=== PATIENT | male | born 1965 | race Caucasian/White ===

== ENCOUNTER 2019-06-05 08:58 | Observation (INO) ==
--- NOTE | 2019-05-23 10:29 | Anesthesiology Consultation ---
Date of Service May 23, 2019 Assessment & Plan (1) Encounter for pre-operative examination: Chart Review Chart Review: Acceptable Risk for Surgery and Patient NOT seen in Pre Admission Testing History Surgery Operation Date: 06/05/19 07:30 Proposed Procedures p L4-L5 Laminectomy - Arpit Erickson DO Height/Weight Height: 5 ft 8 in Weight: 97.069 kg Allergies Allergy/AdvReac Type Severity Reaction Status Date / Time Penicillins Allergy Mild as child Verified 04/30/19 13:08 Medications Home Medications Medication Instructions Recorded Confirmed Last Taken Juice Plus 4 tab PO QAM 11/21/18 04/30/19 11/21/18 acetaminophen [Tylenol Extra 1,000 mg PO HS 11/21/18 04/30/19 11/20/18 Strength] alprazolam 1 mg PO HS 11/21/18 04/30/19 11/20/18 calcium carbonate [Oyster Shell 1,000 mg PO QAM 11/21/18 04/30/19 11/21/18 Calcium] cetirizine 10 mg PO QAM 11/21/18 04/30/19 11/21/18 cholecalciferol (vitamin D3) 5,000 unit PO QAM 11/21/18 04/30/19 11/21/18 [Vitamin D3] omeprazole 20 mg PO QAM 11/21/18 04/30/19 11/21/18 Past Medical History Medical History (Updated 05/23/19 @ 10:28 by Sabine Lanier) GERD (gastroesophageal reflux disease) Obesity Osteoarthritis Past Family History Family History Mother Stroke Ovarian cancer Father Heart disease Past Surgical History Surgical History Hx laparoscopic cholecystectomy Hx of colonoscopy Hx of umbilical hernia repair Hx of wisdom tooth extraction PONV (postoperative nausea and vomiting) "does well with scopolamine patch" per RN phone interview Social History Smoking Status: Never smoker Do You Dip or Chew Tobacco: No Hx Alcohol Use: Yes Alcohol type: beer alcohol intake frequency: a few times a month Hx Substance Use: No substance use type: does not use Testing Laboratory Results 05/20/19 WBC 6.80 H/H 15.9/44.5 PLATELETS 249 SODIUM 136 POTASSIUM 4.1 CHLORIDE 105 CO2 26 BUN 21 CREATININE 0.86 GLUCOSE 133 PT 10.5 PTT 25.1 INR 1.0 Electrocardiogram Date: 05/20/19 NSR at 71bpm. iRBBB. Chest X-Ray Date: 05/20/19 The cardiac silhouette is mildly enlarged. This remains unchanged. The lungs are clear. No pleural effusions. No pneumothorax. IMPRESSION: Stable mild cardiomegaly. No acute process. Echocardiogram Date: 08/25/14 EF 60%. No RWMA. Mild LVH. Mild MR. Mild biatrial enlargement.
--- NOTE | 2019-06-04 09:07 | History and Physical Report ---
DATE OF ADMISSION: 06/05/2019 CHIEF COMPLAINT: Back pain, lower extremity difficulty, paresthesias and weakness. HISTORY OF PRESENT ILLNESS: Chepe is a pleasant, ongoing weakness to his lower extremities. 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 PAST MEDICAL HISTORY: Positive for GERD. FAMILY HISTORY: Stroke, heart disease. SOCIAL HISTORY: Nonsmoker, non-ETOH user. REVIEW OF SYSTEMS: Denies any fevers, sweats, chills. Denies any HEENT complaints. No chest pain, palpitations. No shortness of breath. He does have some bowel and bladder issues, possibly related to the spine. OBJECTIVE: GENERAL: He is alert, oriented, pleasant. VITAL SIGNS: Blood pressure 130/80, pulse 80, respirations 16. HEENT: Pupils react to light and accommodation. Ear, nose and throat clear. ABDOMEN: Soft, nontender, no referred pain. He has some weakness of dorsiflexion, plantarflexion, weakness with percussion as well. IMPRESSION: Severe spinal stenosis. PLAN: Includes a laminectomy L4-L5 lumbar spine.
[~2019-06-05 08:58] MED LIST: CLINDAMYCIN 600 MG/54 ML BAG IV SCH; LR 15ML/HR IV SCH; SODIUM CHLORIDE 0.9% 1,000 ML IV SCH
[2019-06-05] MEDS ORDERED: PROPOFOL IV EMULSION 10 MG/ML 20 ML VIAL IV ONE (09:34)
[2019-06-05] MEDS ORDERED: ONDANSETRON INJ 2 MG/ML 2 ML VIAL ONE (09:34)
[2019-06-05] MEDS ORDERED: HYDROmorphone INJ 2 MG/ML SYR/VIAL ONE (09:34)
[2019-06-05] MEDS ORDERED: ROCURONIUM BROMIDE 10 MG/ML 5 ML VIAL ONE (09:34)
[2019-06-05] MEDS ORDERED: MIDAZOLAM HCL 1 MG/ML 2ML VIAL ONE (09:34)
[2019-06-05] MEDS ORDERED: fentaNYL citrate 100 MCG/2 ML VIAL ONE (09:34)
[2019-06-05] MEDS ORDERED: LIDOCAINE HCL 2% 2 ML VIAL/AMP(20MG/ML) INFIL ONE (09:34)
[2019-06-05] MEDS ORDERED: DEXAMETHASONE SOD INJ 4 MG/ML VIAL ONE (09:34)
[2019-06-05] MEDS ORDERED: SCOPOLAMINE 1.5 MG TDSY ONE (10:28)
[2019-06-05] MEDS ORDERED: GELATIN SPONGE SZ 100 ONE (10:29)
[2019-06-05] MEDS ORDERED: EPINEPHrine INJ 1 MG/ML AMP ONE (10:30)
[2019-06-05] MEDS ORDERED: BUPIVACAINE 0.5 % 5 MG/1 ML MPF 30ML VIAL ONE (10:30)
[2019-06-05] MEDS ORDERED: THROMBIN FOR SOLN 20000 UNIT KIT ONE (10:30)
[2019-06-05] MEDS ORDERED: BACITRACIN INJ 50,000 UNIT VIAL ONE (10:30)
[2019-06-05] MEDS ORDERED: VANCOMYCIN HCL 1000MG/20ML VIAL ONE (10:31)
[2019-06-05] MEDS ORDERED: ePHEDrine sulfate 50 MG/ML AMP IV PRN (10:37)
[2019-06-05] MEDS ORDERED: ONDANSETRON INJ 2 MG/ML 2 ML VIAL IV PRN (10:37)
[2019-06-05] MEDS ORDERED: PROMETHAZINE HCL 12.5 MG in SODIUM CHLORIDE 0.9% 50 ML IV PRN (10:37)
[2019-06-05] MEDS ORDERED: ATROPINE SULFATE 0.1 MG/ML 10ML SYR IV PRN (10:37)
[2019-06-05] MEDS ORDERED: fentaNYL citrate 100 MCG/2 ML VIAL IV PRN (10:37)
[2019-06-05] MEDS ORDERED: METOCLOPRAMIDE HCL INJ 5 MG/ML 2 ML VIAL IV PRN (10:37)
[2019-06-05] MEDS ORDERED: HYDROmorphone INJ 2 MG/ML SYR/VIAL IV PRN (10:37)
--- NOTE | 2019-06-05 10:49 | History & Physical Bridge Note ---
Date of Service June 05, 2019 History & Physical Bridge Note I have examined the patient, reviewed the History & Physical and in the interval since the performance of the History & Physical I have noted the following changes of clinical significance: no changes noted
--- NOTE | 2019-06-05 12:40 | Post Operative Brief Note ---
PG Immediate Post Op with CF Date of Surgery June 05, 2019 Pre & Post Diagnosis Operation Date: 06/05/19 11:05 Pre-Op Diagnosis: Disc Herniation, Spinal Stenosis Post-Op Diagnosis: Disc Herniation, Spinal Stenosis I identified the patient and participated in the time-out.: Yes Procedure Operation Date: 06/05/19 11:05 Actual Procedures p L3-L5 Decompression and Laminectomy(Not Applicable) - Arpit Erickson DO Surgeon Arpit Erickson DO Coroner Transport Technician Brian minor Estimated Blood Loss 150 Findings Consistent with Post-Op Diagnosis Specimens Specimen Description: none per surgeon Drains Hemovac Drain Disposition Accompanied Patient To Recovery: Yes Overlapping Procedure I was immediately available: during the entire case.
--- NOTE | 2019-06-05 12:43 | Operative Report ---
PG Post Operative Report Pre & Post Diagnosis Operation Date: 06/05/19 11:05 Pre-Op Diagnosis: Disc Herniation, Spinal Stenosis Post-Op Diagnosis: Disc Herniation, Spinal Stenosis I identified the patient and participated in the time-out.: Yes Procedure Operation Date: 06/05/19 11:05 Actual Procedures p L3-L5 Decompression and Laminectomy(Not Applicable) - Arpit Erickson DO Surgeon Arpit Erickson DO Bread Molder Brian minor Estimated Blood Loss 150 Findings Consistent with Post-Op Diagnosis Specimens No specimens Drains Hemovac Anesthesia Type General Disposition Accompanied Patient To Recovery: Yes Description of Procedure Patient was brought to the operating room. A general intubated anesthetic provided to the patient. Images were studied thoroughly prior to his start of the procedure' He was placed prone on the Teofilo table for scrub then prepped draped sterile. Formal timeout taken We made a skin incision in fashion incision dissecting down. We used C-arm guidance to verify positioning. We were done on the facet joints and lamina and did a complete laminectomy at the 4 5 and 3 4 areas of the lumbar spine is a multitude of techniques. Including a bur rongeurs Kerrisons and [place]ell rongeurs as the bone was quite rigorous and dense. Following each and every nerve root decompressed from L3 down to L5. I probed the nerve roots I could visualize the nerve roots I they were free of obstruction at the conclusion We then began our closure we first irrigated thoroughly closed over Hemovac drain and over vancomycin powder 1 Vicryl suture 2-0 Vicryl suture used on the subcuticular layer 3-0 nylon on the skin surface. The drain was activated Nylon was used on the skin. Sterile dressings applied. Returned to recovery in satisfactory and stable there were no intraoperative complications Bone graft used negative Anesthetic General I attest to the content of the Intraoperative Record and any orders documented therein. Any exceptions are noted below.
--- NOTE | 2019-06-05 13:08 | Fluoroscopy Report ---
FL spine 1V any level CLINICAL HISTORY: L4-L5 laminectomy COMPARISON STUDY: None FLUOROSCOPY TIME: 5 seconds. NUMBER OF FLUOROSCOPIC IMAGES: 1 FINDINGS: A single fluoroscopic lateral view is provided for interpretation. This reveals posterior s kin retractors and metallic probes at the L4 and L5 levels. IMPRESSION: Intraoperative localization spot film demonstrating metallic probes at the superior L4 l evel and inferior L5 level. ACT 112: Negative or not required by law. Electronically signed by: Jose Bernal M.D. 06/05/2019 1:06 PM
--- NOTE | 2019-06-05 13:35 | Anesthesiology Progress Note ---
Date of Service June 05, 2019 Anesthesia Post Procedure Vital Signs Vital Signs: Temp Pulse Pulse Resp BP BP Pulse Ox 06/05/19 13:30 37.1 C 90 14 147/83 H 96 06/05/19 13:20 37.1 C 91 H 15 146/89 H 97 06/05/19 13:10 92 H 18 154/88 H 96 06/05/19 12:59 96 H 14 156/84 H 98 06/05/19 12:50 99 H 13 159/89 H 99 06/05/19 12:41 36.6 C 89 15 138/74 98 06/05/19 09:39 37.0 C 78 18 163/94 H 96 Pain Intensity Lower Medial Back: Pain Intensity: 0 Transfer of Care Handoff Completed per policy Notes Mental Status: alert / awake / arousable and participated in evaluation Patient Amnestic to Procedure: Yes Nausea / Vomiting: adequately controlled Pain: adequately controlled Airway Patency, RR, SpO2: stable & adequate BP & HR: stable & adequate Hydration State: stable & adequate Anesthetic Complications: no major complications apparent
[2019-06-05] MEDS ORDERED: ACETAMINOPHEN 1,000 MG/100 ML VIAL IV PRN (14:14)
[2019-06-05] MEDS ORDERED: HYDROmorphone INJ 1 MG/ML SYRINGE IV PRN (14:14)
[2019-06-05] MEDS ORDERED: KETOROLAC 30 MG/ML VIAL IV PRN (14:14)
[2019-06-05] MEDS ORDERED: MAGNESIUM HYDROXIDE SUSP 30 ML UDC PO PRN (14:14)
[2019-06-05] MEDS ORDERED: OXYCODONE HCL IR 5 MG TAB (IMMEDIATE RELEASE) PO PRN (14:14)
[2019-06-05] MEDS: LACTATED RINGER'S 1,000 ML IV SCH (17:18)
[2019-06-05] MEDS: CLINDAMYCIN 600 MG in DEXTROSE 5% 50 ML IV SCH (18:59)
[2019-06-05] MEDS: DOCUSATE SODIUM 100 MG CAP PO SCH (20:11)
[2019-06-05] MEDS ORDERED: ALPRAZolam 0.5 MG TABLET PO SCH (21:00)
[2019-06-06] MEDS: CLINDAMYCIN 600 MG in DEXTROSE 5% 50 ML IV SCH ×2 (03:07→11:13)
[2019-06-06] MEDS: LACTATED RINGER'S 1,000 ML IV SCH (06:21)
--- NOTE | 2019-06-06 08:09 | Anesthesiology Progress Note ---
Date of Service June 06, 2019 Anesthesia Post Procedure Vital Signs Vital Signs: Temp Pulse Pulse Pulse Resp BP BP 06/06/19 03:10 36.9 C 77 14 135/73 06/05/19 22:06 37 C 63 16 135/69 06/05/19 20:00 36.5 C 78 16 145/78 H 06/05/19 17:00 36.5 C 64 16 148/68 H 06/05/19 16:00 36.6 C 61 16 136/68 06/05/19 14:58 36.6 C 70 16 155/74 H 06/05/19 14:30 66 18 148/91 H 06/05/19 14:00 36.9 C 77 18 136/86 06/05/19 13:45 71 11 L 133/77 06/05/19 13:35 87 15 153/87 H 06/05/19 13:30 37.1 C 90 14 147/83 H 06/05/19 13:20 37.1 C 91 H 15 146/89 H 06/05/19 13:10 92 H 18 154/88 H 06/05/19 12:59 96 H 14 156/84 H 06/05/19 12:50 99 H 13 159/89 H 06/05/19 12:41 36.6 C 89 15 138/74 06/05/19 09:39 37.0 C 78 18 163/94 H Pulse Ox 06/06/19 03:10 96 06/05/19 22:06 98 06/05/19 20:00 94 06/05/19 17:00 96 06/05/19 16:00 96 06/05/19 14:58 96 06/05/19 14:30 97 06/05/19 14:00 94 06/05/19 13:45 97 06/05/19 13:35 97 06/05/19 13:30 96 06/05/19 13:20 97 06/05/19 13:10 96 06/05/19 12:59 98 06/05/19 12:50 99 06/05/19 12:41 98 06/05/19 09:39 96 Pain Intensity Lower Medial Back: Pain Intensity: 0 Notes Mental Status: alert / awake / arousable and participated in evaluation Patient Amnestic to Procedure: Yes Nausea / Vomiting: adequately controlled Pain: adequately controlled Airway Patency, RR, SpO2: stable & adequate BP & HR: stable & adequate Hydration State: stable & adequate Anesthetic Complications: no major complications apparent and Pt Satisfied with anesthetic care
[2019-06-06] MEDS: DOCUSATE SODIUM 100 MG CAP PO SCH (08:42)
[2019-06-06] MEDS ORDERED: CETIRIZINE HCL 10 MG TABLET PO SCH (09:00)
[2019-06-06] MEDS ORDERED: PANTOprazole 40 MG TAB PO SCH (09:00)
[2019-06-06] MEDS ORDERED: CHOLECALCIFEROL 1,000 UNITS TAB PO SCH (09:00)
--- NOTE | 2019-06-07 02:28 | Discharge Summary ---
SUBJECTIVE: He is alert, oriented, minimal complaints of pain, soreness, but no riveting leg pain. Already sees improvement. OBJECTIVE: Vital signs stable. No chest pain, shortness of breath, confusion. ASSESSMENT: Decompression laminectomy. He is now out about 24 hours. PLAN: Up and ambulatory this morning and early afternoon. Discharged home about 2 or 3 o'clock this afternoon, which is 06/06/2019. He has a followup appointment in 10 days. He has a prescription sent to his pharmacy. He needs no extra support.
[2019-06-07] MEDS ORDERED: POLYETHYLENE (MIRALAX) 17 GM PACK PO SCH (09:00)
== END 2019-06-06 14:40 | disposition home health service (06) ==
LOC: ASU 08:58 → 3E 08:58